=== PATIENT | male | born 1945 | race Caucasian/White ===

== ENCOUNTER 2018-01-12 06:15 | Day surgery (SDC) | payer OTHER | END 2018-01-12 10:45 | disposition home or self-care (01) | LOC: AMB-ENDOS 06:15 | DX: D13.0 Benign neoplasm of esophagus (principal); D13.1 Benign neoplasm of stomach; D13.2 Benign neoplasm of duodenum; K29.70 Gastritis, unspecified, without bleeding; E11.9 Type 2 diabetes mellitus without complications; K64.8 Other hemorrhoids; I10 Essential (primary) hypertension; Z85.038 Personal history of other malignant neoplasm of large intestine ==

== ENCOUNTER 2018-02-22 05:30 | Day surgery (SDC) | payer OTHER ==
[~2018-02-22 05:30] MED LIST: COZAAR50 MG PO; LIPITOR40 MG PO; METFORMIN HCL500 MG PO; NAMENDA1 EACH PO; PROTONIX20 MG PO; [UNRECOGNIZED DRUG - OTHER]
[2018-02-22] MEDS ORDERED: ULTRACET PO (09:02)
== END 2018-02-22 12:25 | disposition home or self-care (01) ==
LOC: CIR.AMB 05:30
DX: K43.2 Incisional hernia without obstruction or gangrene (principal)

== ENCOUNTER 2023-03-23 17:39 | Emergency (ER) | payer OTHER ==
[~2023-03-23] VITALS: Ht 165.1 cm; Wt 72.6 kg
[~2023-03-23 17:39] MED LIST changes: +ULTRACET PO
[2023-03-23] MEDS ORDERED: VITAMIN C1000 MG PO (18:03)
[2023-03-23] MEDS ORDERED: CYANOCOBALAMIN 2500 MCG (18:03)
== END 2023-03-23 21:05 | disposition home or self-care (01) ==
LOC: ER 17:39
DX: R10.84 Generalized abdominal pain (principal)

== ENCOUNTER 2023-04-04 15:42 | Inpatient (IN) | payer OTHER ==
[~2023-04-04] VITALS: Ht 152.4 cm; Wt 68.0 kg
[~2023-04-04 15:42] MED LIST changes: +CYANOCOBALAMIN 2500 MCG; +VITAMIN C1000 MG PO
[2023-04-04] MEDS ORDERED: ARICEPT10 MG PO (16:46)
[2023-04-04] MEDS ORDERED: GLIMEPIRIDE2 MG PO (16:47)
[2023-04-04] MEDS ORDERED: CELEXA20 MG PO (16:47)
[2023-04-04] MEDS ORDERED: IMODIUM A-D2 M2 PO (16:47)
[2023-04-04] MEDS ORDERED: RESTORIL30 M1 PO (16:47)
--- NOTE | 2023-04-04 16:56 | NUR ---
SE RECIBE PTE EN COMPANIA DE FAMILIAR QUIEN REFIER PTE PRESENTA INFECCION DE ORINA Y PRECION BAJA. AL MOMENTO PTE PRESENTA BP EN 110/60 MANUAL FAMILIAR DE PTE MUESTRA U/A Y CBC EL CUAL REFIERE HABERLO REALIZADO EN LA MANANA Y PTE PRECENTA "WBC LOADED"EN U/A. PTE SE UBOCA EN CAMA 7.
--- NOTE | 2023-04-04 19:01 | NUR ---
PTE ALERTA Y DESORIENTADO. EVALUADO POR DR MONTOYA. SE ORIENTA A FAMILIAR SOBRE TX MEDICO. FAMILIAR REFIERE ENTENDER Y QUE PTE PADECE DE DEMENCIA. SE REALIZAN MUESTRAS DE LABORATORIO CON MEDIDAS ASEPTICAS. SE ADMINISTRA MEDICAMENTO ANNABEL ORDEN. SE CATETERIZA PARA COLECCION DE ORINA. PTE EN OBSERVACION.
== END 2023-04-12 13:28 | disposition home or self-care (01) | DRG 689 ==
LOC: ER 15:42 → MEDI 22:03
PROVIDERS: ADMIT Internal Medicine; ATTEND Internal Medicine
PROC: 02HV33Z Insertion of Infusion Device into Superior Vena Cava, Percutaneous Approach (ICD-10-PCS; principal; 2023-04-11)
DX: N39.0 Urinary tract infection, site not specified (principal); A41.51 Sepsis due to Escherichia coli [E. coli]; N41.0 Acute prostatitis; N17.9 Acute kidney failure, unspecified; E87.6 Hypokalemia; B96.20 Unspecified Escherichia coli [E. coli] as the cause of diseases classified elsewhere; I12.9 Hypertensive chronic kidney disease with stage 1 through stage 4 chronic kidney disease, or unspecified chronic kidney disease; N18.9 Chronic kidney disease, unspecified; E11.22 Type 2 diabetes mellitus with diabetic chronic kidney disease; Z79.4 Long term (current) use of insulin

== ENCOUNTER 2023-05-05 11:11 | Emergency (ER) | payer OTHER ==
[~2023-05-05] VITALS: Ht 170.2 cm; Wt 69.9 kg
[~2023-05-05 11:11] MED LIST changes: +ARICEPT10 MG PO; +CELEXA20 MG PO; +GLIMEPIRIDE2 MG PO; +IMODIUM A-D2 M2 PO; +RESTORIL30 M1 PO
== END 2023-05-05 12:01 | disposition home or self-care (01) ==
LOC: ER 11:11
DX: Z45.2 Encounter for adjustment and management of vascular access device (principal); E11.9 Type 2 diabetes mellitus without complications; Z79.84 Long term (current) use of oral hypoglycemic drugs; I10 Essential (primary) hypertension

== ENCOUNTER 2023-06-26 19:01 | Emergency (ER) | payer OTHER ==
[~2023-06-26] VITALS: Ht 170.2 cm; Wt 70.3 kg
[2023-06-26] MEDS ORDERED: CHOLESTYRAMINE P4 GM PO (20:17)
[2023-06-27] MEDS ORDERED: CIPRO500 MG PO (03:23)
== END 2023-06-27 03:27 ==
LOC: ER 19:01
PROVIDERS: General Practice
DX: N39.0 Urinary tract infection, site not specified (principal); R42 Dizziness and giddiness; Z20.822 Contact with and (suspected) exposure to COVID-19
CPT/HCPCS: 36415; 96372; 99284; J0696